=== PATIENT | female | born 1945 | race Caucasian/White ===

== ENCOUNTER → 2016-06-04 07:05 | Day surgery (SDC) | payer MEDICARE ==
--- NOTE | 2016-05-27 20:34 | HP ---
ADMISSION HISTORY AND PHYSICAL: DATE OF ADMISSION: 06/04/16 - [facility] ATTENDING SURGEON: Dr. Miguel Greene. CHIEF COMPLAINT: Left breast cancer. HISTORY OF PRESENT ILLNESS: This is a 70-year-old hypertensive female with clinical T2N3M0 triple negative left breast cancer who recently completed neoadjuvant AC and Taxol therapy, her last therapy being 05/06/16. She had undergone bilateral screening mammography on 09/04/15, which showed a new 1.9 cm density in the 12 o'clock position of the left breast. Ultrasound that followed confirmed the presence of a 2.2 x 1.5 x 1.4 cm density corresponding with the mammogram. In addition, there were multiple enlarged left axillary lymph nodes measuring up to 2.1 cm. An ultrasound-guided core biopsy was performed on both the breast lesions and one of the axillary lymph nodes on , this showing poorly differentiated adenocarcinoma, negative for ER, IA, and HER-2/loly receptors. The patient underwent bone scan, which was negative for bony metastases. A CT of the chest, abdomen, and pelvis was performed showing 2 hypodense lesions in the liver and 2 small (2 mm) lung nodules as well as a large hiatal hernia. Subsequent PET scan on 01/06/16 showed increased uptake in the areas of the left breast and left axilla as well as in the left supraclavicular lymph node measuring approximately 4 cm. This was subsequently biopsied (FNA by Dr. Crook) on 01/09/16 and was also positive for the same adenocarcinoma. The patient had a port placed and initiated neoadjuvant chemotherapy in December which he recently completed as noted above. She did have an interval mammogram at [facility] on 04/17/16 showing a focal asymmetry in the left upper breast which was decreased from the prior study and with a biopsy clip noted in close proximity. This was at the 1 o'clock position in the left breast measuring at 6 cm from the nipple. Also noted is a second biopsy clip in the left breast at the 12 o'clock position 4.7 cm from the nipple and located 2 cm inferomedial from the first biopsy clip (the patient states that she did have a biopsy done in September 2014 which was benign at that time). There was also noted to be a biopsy clip in the left axilla. The patient has been seen by Dr. Greene most recently on 04/14/16. She had a fairly positive response from the chemotherapy and the left breast lesion as well as the adenopathy are no longer palpable. Dr. Greene discussed with her the recommendation for surgery. She understands the indications, risks, benefits, and alternatives as well as expected perioperative course. She would like to proceed as scheduled with wide excision, left breast cancer (following needle localization), and axillary dissection. She has declined breast reconstruction at this point. PAST MEDICAL HISTORY: Breast cancer as noted above, hypertension, GERD ( history of upper GI bleed and has been maintained on a PPI) with hiatal hernia, chronic mild anemia, asthma. She has a long history of heart murmur since childhood. PREVIOUS SURGERIES: Include: 1. PowerPort placement. 2. Laparoscopic cholecystectomy. 3. Tonsillectomy. 4. Tubal ligation. No reported surgical or anesthesia problems other than that she is fairly sensitive to anesthesia. CURRENT MEDICATIONS: 1. Lisinopril 10 mg once daily. 2. Lovastatin 20 mg once daily (she takes primarily because of family history). 3. Pantoprazole 40 mg once daily. 4. Potassium chloride extended release 20 mEq 1 tablet b.i.d. 5. Benadryl 25 mg q.h.s. 6. Albuterol MDI p.r.n. (uses infrequently). DRUG ALLERGIES: ASPIRIN (GI effects only). TRAMADOL (nausea). SULFA ( difficulty breathing). PENICILLIN (difficulty breathing). NATURAL DERIVED TETANUS, local reaction (synthetic is tolerated). ADHESIVE TAPE (local reaction with skin blistering) (the patient does tolerate a dressing product called Covaderm). FAMILY HISTORY: Negative for anesthesia problems, bleeding or clotting disorders. Positive for maternal cousin who had postmenopausal breast cancer. SOCIAL HISTORY: The patient lives alone (with her dog and cat). She has 2 sons. She has a sister who will be staying with her during the early postoperative period. She is a retired budget accountant. She is a former smoker of up to 1 pack per day for less than 20 years. She quit approximately 30 years ago. She drinks a glass of wine on occasion, but not in recent months secondary to chemotherapy. REVIEW OF SYSTEMS: Constitutional: She has lost what she estimates to be about 30 pounds over the past year or so. She feels that her weight loss has stabilized. She did have some neuropathy symptoms related to the Taxol. She feels that she is beginning to get some of her taste and appetite back since the last chemotherapy. She also had developed some hives presumably related to chemotherapy for which she uses Benadryl at h.s. with good effect. Cardiovascular: She underwent echocardiogram on 01/15/16 which showed a moderately sclerotic aortic valve with borderline aortic stenosis. The remainder of the study was essentially normal. She is treated for hypertension. No history of ND or angina. Respiratory: No recent exacerbations of her asthma. No chronic cough or shortness of breath. GI: Her GERD symptoms are well controlled with pantoprazole. No lower GI symptoms. She did undergo both colonoscopy and EGD around 2011 with apparent gastric ulcer at that time. No additions. : No problems reported. GEOGRAPHY HEAD: I did not enquire about pelvic exam or Pap smear. Otherwise, per the HPI. Endocrine: No diabetes or thyroid dysfunction. PHYSICAL EXAMINATION GENERAL: Well-nourished, well-developed female, in no acute distress. VITAL SIGNS: Height 61.5 inches, weight 113 pounds, temperature 99, blood pressure 108/66, pulse 72, respirations 18. HEENT: Pupils equal and round, reactive. EOMs intact. Conjunctivae pink. Oropharynx: Teeth in good repair. No intraoral lesions. NECK: No lymphadenopathy, thyromegaly, or masses. No palpable supraclavicular lymphadenopathy. LUNGS: Clear to auscultation with an occasional wheeze which she states is her usual baseline. There is a right anterior chest PowerPort in place. HEART: Regular rate and rhythm. There is a systolic murmur heard best at both right and left sternal borders. No gallop or rub. ABDOMEN: Soft, nontender to palpation. No palpable masses or organomegaly. EXTREMITIES: No edema. GENITALIA: Not done. RECTAL: Not done. BACK: No spinous process or CVA tenderness. NEUROLOGICAL: Grossly intact though specific exam not performed. She does have recent history of neuropathy. SKIN: Warm and dry. No suspicious rashes or lesions noted, although complete skin survey was not performed. IMPRESSION: Left breast cancer. PLAN: Wide excision, left breast cancer (after needle localization); left axillary dissection. CHRISTOPHER L CHARLES, PA CC: Dr. Rose; Dr. Francis; Dr. Foreman* [id number]/[facility] #: [id number] [facility]ENTER[facility]uc
[~2016-06-04 07:05] MED LIST: Acetaminophen TAB* 325 MG ONE; Acetaminophen TAB* 325 MG PO PRN; Buffered Lidocaine 1% SYR 3ML* 3 ML/SYR SYRINGE INTRADERM ONE; Bupivacaine 0.5% W/EPI SDV* 30 ML VIAL ONE; Clindamycin 900 MG IVPREMIX(* 900 MG/50 ML SDV IV ONE; DiMENhydriNATE IV* 50 MG/ML VIAL IV PUSH PRN; Famotidine IV* 10 MG/ML 2 ML (20 mg) ONE; Heparin VIAL(*) 5000 UNITS/ML VIAL (FIVE THOUSAND) ONE; Lidocaine 1% INJ* 10 MG/ML 30 ML SDV ONE; Lidocaine 2% PF * 5 ML VIAL ONE; Lidocaine 2.5%/Prilocain 2.5%* 5 GM TUBE ONE; Midazolam* 1 MG/ML 2 ML VIAL (2 MG) ONE; Ondansetron INJ* 2 MG/ML VIAL IV PRN; Ondansetron INJ* 2 MG/ML VIAL ONE; PROCHLORPERAZINE INJ 5 MG/ML 2 ML VIAL IV PRN; PROCHLORPERAZINE INJ 5 MG/ML 2 ML VIAL ONE; Propofol* 10 MG/ML 20 ML BTL IV PUSH ONE; Sodium Bicarbonate 8.4% SYR* 10 ML SYRINGE ONE; fentaNYL* 50 MCG/ML 2 ML VIAL (100 MCG VIAL) ONE
--- NOTE | 2016-06-04 09:34 | RAD ---
INDICATION: Left breast needle localization. COMPARISON: Comparison is made with multiple prior mammogram and ultrasound studies. The most recent mammographic exam is from April 17, 2016. TECHNIQUE: The benefits and risks of the procedure were explained to the patient. The patient consented to the exam. A timeout was performed before beginning the procedure. The patient was prepped in the usual sterile fashion. The breast was anesthetized with buffered lidocaine. Using digital mammographic guidance a needle was placed immediately adjacent to a localization clip at the 12:00 position in the left breast. This was exchanged for a Hawkin's type wire. There is also a localization clip approximately at the 1 to 2:00 position in the left breast from a prior benign biopsy. Postprocedure mammograms demonstrate that the wire is located 3 mm anterior to the localization clip. There is no evidence for hematoma. The patient tolerated the procedure without incident. IMPRESSION: SUCCESSFUL NEEDLE LOCALIZATION PROCEDURE.
[2016-06-04] MEDS: fentaNYL* 50 MCG/ML 2 ML VIAL (100 MCG VIAL) IV PRN ×2 (12:55→13:00)
[2016-06-04 13:47] VITALS: BP 130/77
--- NOTE | 2016-06-05 03:47 | OP ---
DATE OF OPERATION: 06/04/16 [facility] DATE OF : 41 SURGEON: Miguel Greene MD IOS PROGRAMMER: Farida Mcneill NP ANESTHESIOLOGIST: Dr. Alvarado. ANESTHESIA: LMAC anesthesia. PRE-OP DIAGNOSIS: Left breast carcinoma. POST-OP DIAGNOSIS: Left breast carcinoma. OPERATIVE PROCEDURE: Needle-localizing wide local excision of left breast cancer with axillary lymph node dissection. Repair of axillary vein. DESCRIPTION OF PROCEDURE: The patient was supine on the operative table. After adequate intravenous sedation, compression stockings, Dario Hugger warmer, and intravenous antibiotics, the left breast and chest region and axillary region were prepped with antiseptic and draped in a sterile fashion. Local infiltrative anesthesia was administered. An elliptical incision was carried out in the region of the guidewire. This was approximately 3 x 6 cm and a piece of breast tissue approximately 6 x 7 x 4 cm was incised and removed down to the subfascial plane. This was marked with usual localizing sutures and sent fresh to Radiology which confirmed excision of the appropriate lesion and then forwarded on to Pathology after adequate hemostasis. Closure was accomplished using 3-0 and 5-0 Polysorb followed by Steri-Strips. In the left axilla, local anesthetic was administered and approximately a 6-cm incision was created and axillary lymph node dissection was carried out. There were multiple small lymph nodes identified, none were grossly enlarged certainly compatible with neoadjuvant therapy. The axillary vein was identified. Latissimus, edge of pectoralis, and chest wall were identified. Long thoracic and thoracodorsal nerves were identified. In dissecting a vein branch off the axillary vein, there was a tear at the crotch of the vein and this needed repair. In attempting to repair, it started to tear a little bit more. So, the vein was repaired using 6-0 Prolene. Doppler was used to assess the vein and it sounded like there was appropriate flow in the vein. Hemostasis was good. The operative field was irrigated with warm saline solution. Free fluid was suctioned out. Everything was in good condition. A ANSELMO drain was brought out through an inferior stab wound, sutured at the skin with 3-0 Prolene. The closure was accomplished using 3-0 and 5- 0 Polysorb followed by Steri-Strips. The patient was awakened and brought to Recovery in good condition. Drain was Bebo-Chaves. Sponge and instrument counts correct. Estimated blood loss was 50 mL. Specimens were left breast cancer excision and left axillary lymph node dissection. CC: Dr. Miguel Greene; Dr. Teagan Rose; Dr. Dia Francis; Dr. Dk Foreman* [id number]/[facility] #: [id number] [facility]
== END | disposition home or self-care (01) ==
LOC: OR 07:05
PROVIDERS: ATTEND Surgery
DX: C50.212 Malignant neoplasm of upper-inner quadrant of left female breast (principal)
CPT/HCPCS: 88307; 88341; 88342; A9270-GY; J0780; J1644; J2250; J2405; J2704; J3010